=== PATIENT | female | born 1930 | race Caucasian/White ===

== ENCOUNTER 2016-06-23 02:29 | Inpatient (IN) | payer MEDICARE, BC ==
[~2016-06-23] VITALS: Ht 154.9 cm; Wt 58.1 kg
[2016-06-23] MEDS: IV NS 0.9% 1,000 ML BAG IV ONE ×2 (02:30→03:20)
--- NOTE | 2016-06-23 02:32 | NUR ---
To bed 1 a 86 yo female bibra with c/o of chest pain since 2200 last night, accompanied with sob. Per patient chest pain is dull at 5/10, at the midsternum and nonradiating. At room air patient's O2 saturation is 90. Patient is aaox3, skin is warm and dry. Cardiac monitoring on showing afib at 140-150's. Dr Holden is aware, new orders received, will carry out.
--- NOTE | 2016-06-23 02:33 | NUR ---
Placed patient on simple face mask at 6lpm, patient allyson well with o2 saturation greater than 95%. Encouraged deep breathing exercises. Relaxation measures applied.
--- NOTE | 2016-06-23 02:35 | NUR ---
started a saline lock on rightac 18g, blood draw and sent to lab.
[2016-06-23] MEDS ORDERED: IV NS 0.9% 1,000 ML ONE (02:56)
[2016-06-23] MEDS ORDERED: IV SET PRIMARY PUMP SET 1 EA INFUS.SET MC ONE (02:56)
[2016-06-23] MEDS ORDERED: IV SET PRIMARY 1 EA INFUS.SET MC ONE (02:56)
[2016-06-23] MEDS ORDERED: DILTIAZEM HCL 25 MG IV ONE (02:56)
[2016-06-23] MEDS ORDERED: DILTIAZEM HCL 50 MG IV ONE (02:56)
[2016-06-23] MEDS ORDERED: IV D5W 100 ML IV ONE (02:57)
[2016-06-23 02:58] LABS: BASOPHILS % (AUTO) 0.3 % (0.0-2.0); EOSINOPHILS # (AUTO) 0.1 /CMM (0.0-0.7); EOSINOPHILS % (AUTO) 1.3 % (0.0-6.0); HEMATOCRIT 43 % (33-45); LYMPHOCYTES # (AUTO) 2.8 /CMM (0.8-4.8); LYMPHOCYTES % (AUTO) 25.4 % (20.0-44.0); MEAN CORPUSCULAR HEMOGLOBIN 27 PG (26.0-33.0); MEAN CORPUSCULAR HGB CONC 32 g/dl (31.0-36.0); MEAN CORPUSCULAR VOLUME 85 fL (82-100); MONOCYTES # (AUTO) 0.6 /CMM (0.1-1.30); NEUTROPHILS # (AUTO) 7.5 /CMM (1.8-8.9); PLATELET COUNT (AUTO) 302 /CMM (150-450)
[2016-06-23] MEDS ORDERED: DILTIAZEM HCL 25 MG IV IV ONE (03:00)
[2016-06-23] MEDS ORDERED: DILTIAZEM HCL IV 125 MG in IV D5W 100 ML IV PRN (03:00)
[2016-06-23 03:14] LABS: TROPONIN I 0.06 ng/mL (0.00-0.056)
[2016-06-23 03:19] LABS: CALCIUM, SERUM 9.7 mg/dL (8.5-10.1); CREATININE 0.8 mg/dL (0.6-1.3); POTASSIUM 4.4 mmol/L (3.5-5.1)
[2016-06-23 03:25] LABS: INR 1.04 (0.87-1.13); PROTHROMBIN TIME 11.2 SECS (9.5-12.7)
--- NOTE | 2016-06-23 03:30 | NUR ---
Cardizem 15mg slow IVP given, patient allyson well. HR at this time is 80-90's, SBP maintained >90.
[2016-06-23] MEDS ORDERED: DILTIAZEM HCL 30 MG TABLET ONE (03:45)
[2016-06-23] MEDS ORDERED: DILTIAZEM HCL 30 MG TABLET PO ONE (04:00)
[2016-06-23] MEDS ORDERED: MORPHINE SULFATE INJ 2 MG/ML DISP.SYRIN ONE (04:10)
--- NOTE | 2016-06-23 04:11 | NUR ---
Report given to Mona ALCANTARA in tele 1st flr for gordy.
[2016-06-23] MEDS ORDERED: MORPHINE SULFATE INJ 10 MG/ML DISP.SYRIN IV ONE (04:30)
[2016-06-23 04:45] VITALS: BP 101/61
--- NOTE | 2016-06-23 04:45 | NUR ---
EYEGLASS FRAME TRUER INITIAL NOTE PT RECEIVED IN STABLE CONDITION FROM EMERGENCY DEPARTMENT. A/O X4 AND ABLE TO MAKE NEEDS KNOWN. ON 5L OF O2 VIA SIMPLE FACE MASK. NO C/O PAIN. TELE- AFIB CONTROLLED 88. IV R FA #18G CLEAN, DRY, INTACT, FLUSHING WELL, PATENT. ALL SAFETY MEASURES IN PLACE. CALL LIGHT WITHIN REACH AT ALL TIMES. BED IN LOWEST POSITION AND LOCKED IN PLACE. WILL CONTINUE TO MONITOR.
--- NOTE | 2016-06-23 04:48 | NUR ---
transported patient to room 120-2, tele 1st floor via als protocol, no incident noted. Mona ALCANTARA and Ethel KANG at bedside.
[2016-06-23 04:50] LABS: APPEARANCE,URINE CLEAR (CLEAR); BILIRUBIN,URINE NEGATIVE (NEGATIVE); BLOOD, URINE NEGATIVE Ery/uL (NEGATIVE); COLOR,URINE YELLOW (YELLOW); KETONES,URINE NEGATIVE (NEGATIVE); LEUKOCYTE ESTERASE ,URINE TRACE (NEGATIVE); NITRITE, URINE NEGATIVE (NEGATIVE); PROTEIN,URINE TRACE mg/dl (NEGATIVE); UGLUCOSE NEGATIVE (NEGATIVE); UROBILINOGEN,URINE 0.2 EU/dL (0.2)
[2016-06-23] MEDS ORDERED: MAGNESIUM HYDROXIDE 30 ML UDC PO PRN (05:00)
[2016-06-23] MEDS ORDERED: HYDROCODONE/APAP 5/325MG 1 EACH TABLET PO PRN (05:00)
[2016-06-23] MEDS ORDERED: ACETAMINOPHEN 325 MG TABLET PO PRN (05:00)
[2016-06-23] MEDS ORDERED: ONDANSETRON HCL/PF 4 MG/2 ML VIAL IVP PRN (05:00)
[2016-06-23] MEDS ORDERED: Z GUARD REMEDY 2 OZ OINT TP PRN (05:00)
[2016-06-23] MEDS ORDERED: MAG HYDROX/AL HYDROX/SIMETH 30 ML UDC PO PRN (05:00)
[2016-06-23] MEDS ORDERED: ZOLPIDEM TARTRATE 5 MG TABLET PO PRN (05:00)
[2016-06-23 05:01] LABS: RBC,URINE 0-2 /HPF (0-2)
[2016-06-23 05:02] LABS: ADD URINE CULTURE YES; BACTERIA,URINE None seen /HPF (None Seen)
[2016-06-23 05:03] LABS: SQUAMOUS EPITHELIAL CELL,UR Moderate /HPF (None Seen)
[2016-06-23 05:04] LABS: MUCUS,URINE Few /LPF (None Seen)
--- NOTE | 2016-06-23 06:30 | NUR ---
DIETITIAN CHIEF CLOSING NOTE PT REMAINED IN NO ACUTE DISTRESS DURING SHIFT. ALL NEEDS ATTENDED TO PROMPTLY. EDUCATION GIVEN REGARDING ACUTE CORONARY SYNDROME ALONG WITH A PRINT OUT TO READ OVER. PT VERBALIZED UNDERSTANDING. ALL SAFETY MEASURES IN PLACE. WILL ENDORSE TO NEXT SHIFT FOR VINCENT.
--- NOTE | 2016-06-23 07:10 | NUR ---
RN INITIAL NOTES RECEIVED PT AWAKE, A/O X4. NO RESPIRATORY DISTRESS NOTED. NO SOB NOTED. ON 02 AT 6LPM VIA MASK. HOB ELEVATED. DENIES ANY PAIN. ON TELE MONITOR, A.FIB AT 100. RAC G#[address] FLUSHED WITH NS. PT COMFORTABLE. WILL MONITOR.
[2016-06-23 08:00] VITALS: BP 95/56
[2016-06-23] MEDS: DILTIAZEM HCL 30 MG TABLET PO SCH ×2 (08:25→20:30)
[2016-06-23] MEDS: PANTOPRAZOLE 40 MG TABLET.DR PO SCH (08:25)
[2016-06-23] MEDS ORDERED: FERR-58 PO (09:16)
[2016-06-23] MEDS ORDERED: ASCO10007 PO (09:16)
[2016-06-23] MEDS ORDERED: CYAN10009 PO (09:16)
[2016-06-23] MEDS ORDERED: LEVO100T9 PO (09:16)
[2016-06-23] MEDS ORDERED: OMEP20CA10 PO (09:16)
[2016-06-23] MEDS ORDERED: ASPI81TA2 PO (09:16)
[2016-06-23] MEDS ORDERED: DULO30CA2 PO (09:16)
[2016-06-23] MEDS ORDERED: SIMV40TA5 PO (09:16)
[2016-06-23] MEDS ORDERED: ATEN25TA PO (09:16)
[2016-06-23] MEDS ORDERED: MAGN500C4 PO (09:16)
[2016-06-23] MEDS ORDERED: METF500T4 PO (09:16)
[2016-06-23] MEDS ORDERED: AMLO5TAB2 PO (09:16)
[2016-06-23] MEDS ORDERED: BUSP15TA3 PO (09:16)
--- NOTE | 2016-06-23 10:45 | NUR ---
RN NOTES DR. RUIZ IN THE UNIT. AWARE OF LAB RESULTS: WBC 11, HGB 14, CREA 4.3, TROPONIN 0.345 FROM 0550 AND 0.600 FROM 0845 DRAW. BNP 172. ALSO AWARE OF CXR RESULT, PULMO EDEMA. PER MD, WILL DO CARDIO CONSULT. AWAITING FOR CARDIO.
--- NOTE | 2016-06-23 11:30 | NUR ---
RN NOTES SEEN AND EXAMINED BY DR. POLLARD. AWARE OF LAB AND CXR RESULT. AWARE OF TROPONIN 0.345 AND 0.600, TRENDING UP. ORDERS MADE AND CARRIED OUT.
[2016-06-23] MEDS: DRONEDARONE HYDROCHLORIDE 400 MG TABLET PO SCH ×2 (11:40→16:37)
[2016-06-23 12:00] VITALS: BP 115/46
[2016-06-23 12:00] LABS: PHOSPHORUS 4.3 mg/dL (2.5-4.9)
[2016-06-23 12:08] LABS: THYROID STIMULATING HORMONE 1.362 uIU/mL (0.358-3.74)
[2016-06-23 16:00] VITALS: BP 99/62
[2016-06-23] MEDS: FERROUS SULFATE (325 MG) 325 MG/TAB TABLET PO SCH (16:36)
[2016-06-23] MEDS: busPIRone 5 MG TABLET PO SCH (16:36)
[2016-06-23] MEDS ORDERED: RIVAROXABAN 10 MG TABLET PO SCH (17:00)
[2016-06-23] MEDS ORDERED: AMLODIPINE BESYLATE 5 MG TABLET PO SCH (17:00)
[2016-06-23] MEDS ORDERED: METFORMIN 500 MG TABLET PO SCH (18:00)
[2016-06-23] MEDS ORDERED: SIMVASTATIN 40 MG TABLET PO SCH ×2 (18:00→22:00)
[2016-06-23] MEDS ORDERED: ATENOLOL 25 MG TABLET PO SCH (18:00)
--- NOTE | 2016-06-23 18:38 | NUR ---
RN CLOSING NOTES PT STABLE. NO RESPIRATORY DISTRESS NOTED. NO SOB NOTED. KEPT HOB ELEVATED. TOLERATING VENT WELL. KEPT HOB ELEVATED. GT IN PLACE. GTF RESTARTED. NO RESIDUAL NOTED. IV LINES IN PLACE. SP RIGHT FEMORAL CATH PLACEMENT. DRESSING INTACT. KEPT CLEAN AND DRY. REPOSITIONED Q2. TX PROVIDED ORDERED. KEPT COMFORTABLE. WILL ENDORSE FOR CONTINUITY OF CARE. Addendum: 06/23/16 at 1841 by USHA KENNEDY RN DISREGARD CLOSING NOTES. ERROR IN DOCUMENTATION (WRONG PATIENT).
--- NOTE | 2016-06-23 18:44 | NUR ---
RN CLOSING NOTES PT STABLE. HR STABLE. NO RESPIRATORY DISTRESS NOTED. NO SOB NOTED. DENIES ANY PAIN. IV LINE IN PLACE. KEPT CLEAN AND DRY. ASSISTED IN REPOSITIONING. EKPT COMFORTABLE. CALL LIGHT WITHIN REACH. WILL ENDORSE FOR CONTINUITY OF CARE.
[2016-06-23 20:00] VITALS: BP 99/54
--- NOTE | 2016-06-23 20:00 | NUR ---
RN CORONARY CARE UNIT: RECEIVED PT AWAKE, A/O X4. NO RESPIRATORY DISTRESS NOTED. NO SOB NOTED. ON 02 AT 4 LPM NASAL CANNULA HOB ELEVATED. DENIES ANY PAIN. ON TELE MONITOR, CONTROLLED A.FIB RATE OF 60-70. RAC G#[address] FLUSHED WITH NS. PT COMFORTABLE. ONGOING MONITORING...
[2016-06-23 20:42] VITALS: BP 99/54
[2016-06-23] MEDS ORDERED: SIMVASTATIN 10 MG TABLET PO SCH (22:00)
[2016-06-24] VITALS: BP 103/52
[2016-06-24 04:00] VITALS: BP_SYST 115; BP_SYST 153; BP_DIAS 67
[2016-06-24 06:54] LABS: BASOPHILS % (AUTO) 0.3 % (0.0-2.0); EOSINOPHILS # (AUTO) 0.1 /CMM (0.0-0.7); HEMATOCRIT 39 % (33-45); LYMPHOCYTES # (AUTO) 2.1 /CMM (0.8-4.8); LYMPHOCYTES % (AUTO) 28.8 % (20.0-44.0); MEAN CORPUSCULAR HEMOGLOBIN 28 PG (26.0-33.0); MEAN CORPUSCULAR HGB CONC 33 g/dl (31.0-36.0); MEAN CORPUSCULAR VOLUME 85 fL (82-100); MONOCYTES # (AUTO) 0.5 /CMM (0.1-1.30); MONOCYTES % (AUTO) 6.2 % (2.0-12.0); NEUTROPHILS # (AUTO) 4.6 /CMM (1.8-8.9); NEUTROPHILS % (AUTO) 62.7 % (43.0-81.0); PLATELET COUNT (AUTO) 229 /CMM (150-450); RDW COEFFICIENT OF VARIATION 12.5 (11.5-15.0); RED BLOOD CELL COUNT(AUTO) 4.64 MIL/uL (4.0-5.2); WHITE BLOOD COUNT (AUTO) 7.3 K/uL (4.3-11.0)
[2016-06-24] MEDS ORDERED: LEVOTHYROXINE SODIUM 100 MCG TABLET PO SCH (07:30)
--- NOTE | 2016-06-24 07:30 | NUR ---
RN NOTES RECEIVED PATIENT IN BED ALERT, AWAKE, ORIENTED X3 WITH BREATHING NORMAL, EVEN AND UNLABORED. NO SOB NOTED. NO ACUTE DISTRESS NOTED. ON 4L O2 VIA NC, SATURATING WELL. TELE MONITOR REVEALS CONTROLLED A-FIB, HR=79. IV RAC 18G IS PATENT AND INTACT, NO INFILTRATION NOTED. KEPT CLEAN, DRY AND COMFORTABLE. ALL NEEDS ATTENDED. SAFETY MEASURE OBSERVED. CALL LIGHT WITH IN REACH. WILL CONT TO MONITOR.
[2016-06-24 07:35] LABS: ALBUMIN 3.5 g/dL (3.4-5.0); BILIRUBIN,TOTAL 0.5 mg/dL (0.2-1.0); CREATININE 0.6 mg/dL (0.6-1.3); MAGNESIUM 1.8 mg/dL (1.8-2.4); PHOSPHORUS 4.4 mg/dL (2.5-4.9); POTASSIUM 4.3 mmol/L (3.5-5.1); TOTAL PROTEIN, SERUM 6.8 g/dL (6.4-8.2)
[2016-06-24] MEDS: PANTOPRAZOLE 40 MG TABLET.DR PO SCH (07:50)
[2016-06-24] MEDS: busPIRone 5 MG TABLET PO SCH (07:50)
[2016-06-24 08:00] VITALS: BP 139/79
[2016-06-24 08:05] LABS: TROPONIN I 0.389 ng/mL (0.00-0.056)
[2016-06-24] MEDS: FERROUS SULFATE (325 MG) 325 MG/TAB TABLET PO SCH (08:13)
[2016-06-24] MEDS: DRONEDARONE HYDROCHLORIDE 400 MG TABLET PO SCH (08:13)
[2016-06-24 08:14] VITALS: BP 139/79
[2016-06-24] MEDS: DILTIAZEM HCL 30 MG TABLET PO SCH (08:14)
[2016-06-24] MEDS ORDERED: ASPIRIN 81 MG TAB.CHEW PO SCH (09:00)
[2016-06-24] MEDS ORDERED: CYANOCOBALAMIN 500 MCG TABLET PO SCH (09:00)
[2016-06-24] MEDS ORDERED: MAGNESIUM OXIDE 400 MG TABLET PO SCH (09:00)
[2016-06-24] MEDS ORDERED: DULOXETINE HCL 30 MG CAPSULE.DR PO SCH (09:00)
[2016-06-24] MEDS ORDERED: ASCORBIC ACID 500 MG TABLET PO SCH (09:00)
--- NOTE | 2016-06-24 11:43 | NUR ---
RN NOTES PATIENT IS ALERT, AWAKE, ORIENTED X3, DISCHARGED IN STABLE CONDITION WITH BREATHING NORMAL, EVEN AND UNLABORED. NO SOB NOTED. NO ACUTE DISTRESS NOTED. DENIES ANY PAIN OR DISCOMFORT. IV HEPLOCK REMOVED. KEPT CLEAN, DRY AND COMFORTABLE. ALL NEEDS ATTENDED. PATIENT LEFT VIA TAXI IN STABLE CONDITION. Addendum: 06/24/16 at 1147 by EMMA SEYMOUR RN DISCHARGE TIME IS 0905.
== END 2016-06-24 09:35 | disposition home or self-care (01) | DRG 280 ==
LOC: ER 02:32 → TELE1 04:11
PROVIDERS: ADMIT Family Medicine; ATTEND Family Medicine
DX: I48.91 Unspecified atrial fibrillation (principal); I21.4 Non-ST elevation (NSTEMI) myocardial infarction; J96.01 Acute respiratory failure with hypoxia; I11.0 Hypertensive heart disease with heart failure; E11.9 Type 2 diabetes mellitus without complications; E03.9 Hypothyroidism, unspecified; F32.9 Major depressive disorder, single episode, unspecified; E78.5 Hyperlipidemia, unspecified; K21.9 Gastro-esophageal reflux disease without esophagitis; I50.9 Heart failure, unspecified; F41.9 Anxiety disorder, unspecified
CPT/HCPCS: 36415; 71010-TC; 80048-TC; 80053-TC; 80061-TC; 81000-TC; 82306; 83735-TC; 83880; 84100-TC; 84439-TC; 84443-TC; 84484-TC; 85025-TC; 85730-TC; 87081-TC; 87086-TC; A4606; J2270; J2405; J3490; J7030; J7060; Z7610

== ENCOUNTER 2016-07-09 13:20 | Inpatient (IN) | payer MEDICARE, BC ==
[~2016-07-09] VITALS: Ht 152.4 cm; Wt 59.0 kg
[~2016-07-09 13:20] MED LIST: AMLO5TAB2 PO; ASCO10007 PO; ASPI81TA2 PO; ATEN25TA PO; BUSP15TA3 PO; CYAN10009 PO; DULO30CA2 PO; FERR-58 PO; LEVO100T9 PO; MAGN500C4 PO; METF500T4 PO; OMEP20CA10 PO; SIMV40TA5 PO
--- NOTE | 2016-07-09 13:30 | NUR ---
pt ambulatory to er bed 11. c/o chest palpitation x today. pt gowned and placed on monitor. states was at the hospital last week for a heart attack. called dr barnard and was advised to come to er. pt appears anxious. asking for food stating she is diabetic. vss awaiting md zuniga.
[2016-07-09] MEDS ORDERED: IV NS 0.9% 500 ML BAG IV ONE (14:30)
[2016-07-09] MEDS ORDERED: NITROGLYCERIN PACKET 1 GM PACKET TOP ONE (14:30)
[2016-07-09] MEDS ORDERED: ASPIRIN 81 MG TAB.CHEW PO ONE (14:30)
[2016-07-09] MEDS ORDERED: IV SET PRIMARY 1 EA INFUS.SET MC ONE (14:37)
[2016-07-09] MEDS ORDERED: ASPIRIN 81 MG TAB.CHEW ONE (14:37)
[2016-07-09] MEDS ORDERED: NITROGLYCERIN PACKET 1 GM PACKET ONE (14:37)
[2016-07-09] MEDS ORDERED: IV NS 0.9% 500 ML IV ONE (14:37)
--- NOTE | 2016-07-09 14:45 | NUR ---
iv line started blood drawn and sent to lab.
[2016-07-09 14:51] LABS: BASOPHILS # (AUTO) 0.1 /CMM (0.0-0.2); BASOPHILS % (AUTO) 0.8 % (0.0-2.0); EOSINOPHILS # (AUTO) 0.2 /CMM (0.0-0.7); EOSINOPHILS % (AUTO) 2.2 % (0.0-6.0); HEMATOCRIT 43 % (33-45); HEMOGLOBIN 14.3 g/dL (11.5-14.8); LYMPHOCYTES # (AUTO) 1.8 /CMM (0.8-4.8); LYMPHOCYTES % (AUTO) 23.9 % (20.0-44.0); MEAN CORPUSCULAR HEMOGLOBIN 28 PG (26.0-33.0); MEAN CORPUSCULAR HGB CONC 33 g/dl (31.0-36.0); MEAN CORPUSCULAR VOLUME 84 fL (82-100); MONOCYTES # (AUTO) 0.5 /CMM (0.1-1.30); MONOCYTES % (AUTO) 6.1 % (2.0-12.0); NEUTROPHILS # (AUTO) 4.8 /CMM (1.8-8.9); PLATELET COUNT (AUTO) 309 /CMM (150-450); RDW COEFFICIENT OF VARIATION 11.8 (11.5-15.0); WHITE BLOOD COUNT (AUTO) 7.4 K/uL (4.3-11.0)
[2016-07-09 15:01] LABS: CALCIUM, SERUM 9.6 mg/dL (8.5-10.1); CARBON DIOXIDE 25 mmol/L (21-32); CHLORIDE 102 mmol/L (98-107); CREATININE 0.8 mg/dL (0.6-1.3); GLUCOSE 162 mg/dL (74-106); SODIUM SERUM 138 mmol/L (136-145); UREA NITROGEN, BLOOD 11 mg/dL (7-18)
[2016-07-09 15:06] LABS: ALANINE AMINOTRANSFERASE 99 U/L (12-78); ALKALINE PHOSPHATASE 81 U/L (46-116); ASPARTATE AMINOTRANSFERASE 72 U/L (15-37); BILIRUBIN,DIRECT 0.1 mg/dL (0.0-0.2); BILIRUBIN,TOTAL 0.4 mg/dL (0.2-1.0); TOTAL PROTEIN, SERUM 7.8 g/dL (6.4-8.2)
[2016-07-09 15:08] LABS: TROPONIN I < 0.017 ng/mL (0.00-0.056)
[2016-07-09 15:10] LABS: INR 1.64 (0.87-1.13); PROTHROMBIN TIME 17.5 SECS (9.5-12.7)
--- NOTE | 2016-07-09 15:29 | NUR ---
ELLIE PAGED, PREASSEMBLER AND INSPECTOR
--- NOTE | 2016-07-09 15:30 | NUR ---
CALLED NURSING SUP. FOR TELE BED
[2016-07-09] MEDS ORDERED: METF500T7 PO (15:45)
[2016-07-09] MEDS ORDERED: DRON400T2 PO (15:45)
[2016-07-09] MEDS ORDERED: UBID100C13 PO (15:45)
[2016-07-09] MEDS ORDERED: RIVA10TA PO (15:45)
[2016-07-09] MEDS ORDERED: BIFI4CAP PO (15:45)
--- NOTE | 2016-07-09 15:53 | NUR ---
[facility] REPAGED
--- NOTE | 2016-07-09 16:31 | NUR ---
report given pt awaiting transfer to floor.
[2016-07-09] MEDS ORDERED: HYDROCODONE/APAP 5/325MG 1 EACH TABLET PO PRN (17:00)
[2016-07-09] MEDS ORDERED: DEXTROSE 50%-WATER 50 ML DISP.SYRIN IV PRN ×2 (17:00→20:30)
[2016-07-09] MEDS ORDERED: MAGNESIUM HYDROXIDE 30 ML UDC PO PRN (17:00)
[2016-07-09] MEDS ORDERED: ONDANSETRON HCL/PF 4 MG/2 ML VIAL IVP PRN (17:00)
[2016-07-09] MEDS ORDERED: ACETAMINOPHEN 325 MG TABLET PO PRN (17:00)
[2016-07-09] MEDS ORDERED: Z GUARD REMEDY 2 OZ OINT TP PRN (17:00)
[2016-07-09] MEDS ORDERED: ZOLPIDEM TARTRATE 5 MG TABLET PO PRN (17:00)
[2016-07-09] MEDS ORDERED: MAG HYDROX/AL HYDROX/SIMETH 30 ML UDC PO PRN (17:00)
--- NOTE | 2016-07-09 17:00 | NUR ---
CONSTRUCTION TECHNOLOGY INSTRUCTORFILLING MACHINE TENDER NOTE PATIENT IS AWAKE ALERT AND ORIENTED x4. NO SOB OR DISTRESS AT THIS TIME. PATIENT STATES THAT CHEST PAIN IS GETTING BETTER. BED LOCKED IN LOWEST POSITION WITH SIDERAILS UP x2. SAFETY MEASURES IMPLEMENTED. CALL LIGHT WITHIN REACH. ALL BELONGINGS ACCOUNTED FOR. ON TELE MONITORING, SINUS RHYTHM AT 86 FOR HEART RATE. IV INTACT AND PATENT NO REDNESS OR SWELLING. CARDIAC DIET. AMBULATORY WITH ASSISTANCE. WILL ENDORSE TO APPRAISER REAL ESTATE NURSE
[2016-07-09] MEDS ORDERED: BLOOD SUGAR DIAGNOSTIC 1 EACH STRIP IN SCH (17:30)
[2016-07-09] MEDS: DRONEDARONE HYDROCHLORIDE 400 MG TABLET PO SCH (17:59)
[2016-07-09] MEDS ORDERED: ASPIRIN 81 MG TAB.CHEW PO SCH (18:00)
[2016-07-09] MEDS: AMLODIPINE BESYLATE 5 MG TABLET PO SCH (18:00)
[2016-07-09] MEDS ORDERED: LACTOBACILLUS RHAMNOSUS GG 1 EACH CAP.SPRINK PO SCH (18:00)
[2016-07-09] MEDS ORDERED: SIMVASTATIN 40 MG TABLET PO SCH (18:00)
[2016-07-09] MEDS ORDERED: METFORMIN XR 500 MG TAB.SR.24H PO SCH (18:00)
[2016-07-09] MEDS: FERROUS SULFATE (325 MG) 325 MG/TAB TABLET PO SCH (18:00)
--- NOTE | 2016-07-09 18:40 | NUR ---
HYDRAULIC ROCK DRILL OPERATOR CLOSING NOTE PATIENT IS AWAKE ALERT AND ORIENTED x4. NO CHEST PAIN AT THIS TIME. NO SOB OR DISTRESS NOTED. ALL DUE MEDICATIONS GIVEN ORDERED. SAFETY MEASURES IMPLEMENTED. CALL LIGHT WITHIN REACH AT ALL TIMES. BED LOCKED IN LOWEST POSITION WITH SIDERAILS UPX2. IV INTACT AND PATENT NO REDNESS OR SWELLING. WILL HAVE CARDIAC STRESS TEST TOMORROW, NO CAFFEINE. NPO AT MIDNIGHT EXCEPT MEDICATIONS. INFORMED CONSENT OBTAINED. WILL ENDORSE TO CARAMEL COLORING OPERATOR NURSE FOR VINCENT.
--- NOTE | 2016-07-09 19:40 | NUR ---
SERVER INITIAL NOTES: RECEIVED REPORT FROM PAIGE ALCANTARA. PT ON BED, AWAKE, A/O X4, ON ROOM AIR RESPIRATION EVEN AND UNLABORED, DENIES ANY CHEST PAIN OR DISCOMFORT AT THIS TIME. ON SINUS RHYTHM HR 74. LEFT AC G 20 IV ACCESS PATENT AND FLUSHING WELL, ON HL. SAFETY PRECAUTIONS FOR FALL INITIATED, CALL LIGHT IN REACH, WILL CONTINUE TO MONITOR
[2016-07-09 20:00] VITALS: BP 106/86
--- NOTE | 2016-07-09 20:23 | NUR ---
mental telepathist notes: contacted christiano [facility] [phone] regarding nm stress test for the pt, christiano stated he's aware as dr barnard called him regarding the procedure. he stated pt to be npo no caffeine, no tea, test will be at 0800am. relayed to fingernail technicianrobel michelle and the pt
[2016-07-09] MEDS: INSULIN REGULAR, HUMAN 100 UNIT/ML 3 ML VIAL SQ PRN (21:52)
[2016-07-09] MEDS: BLOOD SUGAR DIAGNOSTIC 1 EACH STRIP IN SCH (21:52)
--- NOTE | 2016-07-09 21:53 | NUR ---
FELT HOOKER NOTES: PT REQUESTED FOR SLEEPING PILL, PRN AMBIEN 5MG TAB PO ADMINISTERED TO THE PT AT THIS TIME. EDUCATE PT REGARDING MEDICATION SIDE EFFECT. WILL CONTINUE TO MONITOR AND REASSESS
[2016-07-09 21:57] VITALS: BP 132/71
--- NOTE | 2016-07-09 21:58 | NUR ---
TRANSFER STATION OPERATOR NOTES: CHECKED BLOOD SUGAR AND REVEAL 100, NO INSULIN COVERAGE GIVEN PER SLIDING SCALE
--- NOTE | 2016-07-10 00:07 | NUR ---
teleradiologist notes: pt instructed nothing to eat or drink after midnight, for stress test in am, pt agree
[2016-07-10 00:10] VITALS: BP 126/67
[2016-07-10 00:13] VITALS: BP 126/67
[2016-07-10 03:12] LABS: BASOPHILS % (AUTO) 0.6 % (0.0-2.0); EOSINOPHILS # (AUTO) 0.2 /CMM (0.0-0.7); EOSINOPHILS % (AUTO) 2.4 % (0.0-6.0); HEMATOCRIT 38 % (33-45); HEMOGLOBIN 12.8 g/dL (11.5-14.8); LYMPHOCYTES # (AUTO) 2.5 /CMM (0.8-4.8); LYMPHOCYTES % (AUTO) 30.2 % (20.0-44.0); MEAN CORPUSCULAR HEMOGLOBIN 28 PG (26.0-33.0); MEAN CORPUSCULAR HGB CONC 34 g/dl (31.0-36.0); MEAN CORPUSCULAR VOLUME 84 fL (82-100); MONOCYTES # (AUTO) 0.5 /CMM (0.1-1.30); MONOCYTES % (AUTO) 5.7 % (2.0-12.0); NEUTROPHILS # (AUTO) 5.1 /CMM (1.8-8.9); NEUTROPHILS % (AUTO) 61.1 % (43.0-81.0); PLATELET COUNT (AUTO) 295 /CMM (150-450); RDW COEFFICIENT OF VARIATION 12.9 (11.5-15.0); RED BLOOD CELL COUNT(AUTO) 4.55 MIL/uL (4.0-5.2); WHITE BLOOD COUNT (AUTO) 8.4 K/uL (4.3-11.0)
[2016-07-10 03:27] LABS: CALCIUM, SERUM 9.1 mg/dL (8.5-10.1); CREATININE 0.7 mg/dL (0.6-1.3); MAGNESIUM 1.5 mg/dL (1.8-2.4); POTASSIUM 3.9 mmol/L (3.5-5.1)
--- NOTE | 2016-07-10 04:00 | NUR ---
MANAGER INDUSTRIAL NOTES: PT REFUSED VS AT THIS TIME, EDUCATION PROVIDED TO THE PT,
[2016-07-10 05:00] VITALS: BP 128/77
[2016-07-10 06:00] VITALS: BP 147/81
[2016-07-10] MEDS: BLOOD SUGAR DIAGNOSTIC 1 EACH STRIP IN SCH ×2 (06:32→12:20)
--- NOTE | 2016-07-10 06:37 | NUR ---
FIELD ARTILLERY OPERATIONS MAN NOTES: CHECKED BLOOD SUGAR AND REVEAL 118, NO INSULIN COVERAGE GIVEN PER SLIDING SCALE
[2016-07-10] MEDS: INSULIN REGULAR, HUMAN 100 UNIT/ML 3 ML VIAL SQ PRN ×2 (06:43→12:45)
--- NOTE | 2016-07-10 06:49 | NUR ---
telephone order supervisor closing notes: pt on bed, sleeping, arouses to tactile stimuli, remains on room air respiration even and unlabored. denies any chest pain or discomfort throughout the shift. on sinus rhythm hr 74. remains on npo for nm myocardiac perfusion stress test, consent secured. left ac iv access remains patent and flushing well, on hl. safety precautions for fall remains engaged, call light in reach, will endorse to day rn for gordy.
[2016-07-10] MEDS ORDERED: busPIRone 5 MG TABLET PO SCH (07:00)
--- NOTE | 2016-07-10 07:20 | NUR ---
TALENT MANAGER - Opening note pt resting in bed. no s/s of distress. denies cp at this time. iv hl patent and intact. remains NPO for scheduled stress test this AM. consent signed. side rails up x2 call light within reach, bed locked and in lowest position.
[2016-07-10] MEDS ORDERED: Medication Not On Formulary EA (Omeprazole 20 MG) PO SCH (07:30)
[2016-07-10] MEDS ORDERED: PANTOPRAZOLE 40 MG TABLET.DR PO SCH (07:30)
[2016-07-10] MEDS ORDERED: LEVOTHYROXINE SODIUM 100 MCG TABLET PO SCH (07:30)
[2016-07-10 08:00] VITALS: BP 161/87
[2016-07-10] MEDS ORDERED: DULOXETINE HCL 30 MG CAPSULE.DR PO SCH (09:00)
[2016-07-10] MEDS ORDERED: ASCORBIC ACID 500 MG TABLET PO SCH (09:00)
[2016-07-10] MEDS ORDERED: CYANOCOBALAMIN 500 MCG TABLET PO SCH (09:00)
[2016-07-10] MEDS ORDERED: REGADENOSON 0.4 MG/5 ML DISP.SYRIN IVP ONE (09:00)
[2016-07-10] MEDS ORDERED: CARVEDILOL 6.25 MG TABLET PO SCH (09:00)
[2016-07-10] MEDS ORDERED: MAGNESIUM OXIDE 400 MG TABLET PO SCH ×2 (09:00)
[2016-07-10] MEDS ORDERED: RIVAROXABAN 10 MG TABLET PO SCH (09:00)
[2016-07-10] MEDS: FERROUS SULFATE (325 MG) 325 MG/TAB TABLET PO SCH ×2 (09:56→12:26)
[2016-07-10] MEDS: AMLODIPINE BESYLATE 5 MG TABLET PO SCH (09:56)
[2016-07-10] MEDS: DRONEDARONE HYDROCHLORIDE 400 MG TABLET PO SCH (09:57)
[2016-07-10] MEDS ORDERED: IV NS 0.9% 250 ML IV ONE (10:08)
[2016-07-10] MEDS ORDERED: IV SET PRIMARY PUMP SET 1 EA INFUS.SET MC ONE (10:08)
[2016-07-10] MEDS: Magnesium 1GM/D5W 100ML PREMIX 100 ML IV SCH ×2 (10:13→12:53)
[2016-07-10] MEDS ORDERED: CARV6.252 PO (13:47)
[2016-07-10 16:06] VITALS: BP 129/70
== END 2016-07-10 16:30 | disposition home or self-care (01) | DRG 311 ==
LOC: ER 13:24 → TELE 16:27 → MED 07-10 08:42
PROVIDERS: ADMIT Family Medicine; ATTEND Family Medicine
DX: I20.9 Angina pectoris, unspecified (principal); E83.42 Hypomagnesemia; R07.9 Chest pain, unspecified; E78.5 Hyperlipidemia, unspecified; E03.9 Hypothyroidism, unspecified; E11.9 Type 2 diabetes mellitus without complications; D64.9 Anemia, unspecified; F41.9 Anxiety disorder, unspecified; F32.9 Major depressive disorder, single episode, unspecified; I48.91 Unspecified atrial fibrillation; I25.2 Old myocardial infarction; Z79.01 Long term (current) use of anticoagulants
CPT/HCPCS: 36415; 71010-TC; 80048-TC; 80061-TC; 80076-TC; 82962-TC; 83735-TC; 84100-TC; 84484-TC; 85025-TC; 85730-TC; 87081-TC; A4606; A9502; J1815; J2785; J3475; J7040; J7050; Z7610